=== PATIENT | male | born 1955 | race Caucasian/White ===

== ENCOUNTER 2023-08-05 15:13 | Emergency (ER) | payer MEDICARE, MEDICAID ==
[~2023-08-05] VITALS: Ht 185.4 cm; Wt 89.8 kg
[2023-08-05] MEDS: ipratropium/albuterol 3ml nebule NEB ONE ×2 (17:05→17:54)
[2023-08-05 17:07] VITALS: PULSE 86; RESP 16; O2SAT 95
[2023-08-05 17:17] VITALS: PULSE 84; RESP 18; O2SAT 98
[2023-08-05] MEDS: methylPREDNISolone sod succ 125mg/2ml vial IV ONE (17:19)
[2023-08-05] MEDS: azithromycin/NS 500mg/250ml 250 ML IV ONE (17:19)
[2023-08-05] MEDS: nitroGLYCERIN 0.4mg SUBLingual tab SL STA (17:20)
[2023-08-05 17:54] VITALS: PULSE 93; RESP 18; O2SAT 94
[2023-08-05 18:02] LABS: BASOPHILS # (AUTO) 0.1 X10'3 (0-0.2); BASOPHILS % (AUTO) 1.1 % (0-1); EOSINOPHILS # (AUTO) 0.8 X10'3 (0-0.9); EOSINOPHILS % (AUTO) 10.6 % (0-6); HEMATOCRIT 44.5 % (42.0-52.0); HEMOGLOBIN 14.9 g/dl (14.0-17.9); LYMPHOCYTES # (AUTO) 1.7 X10'3 (1.1-4.8); LYMPHOCYTES % (AUTO) 23.9 % (21-51); MEAN CORPUSCULAR HEMOGLOBIN 31.4 PG (27.0-31.0); MEAN CORPUSCULAR HGB CONC 33.6 g/dL (33.0-36.5); MEAN CORPUSCULAR VOLUME 93.5 FL (78-98); MEAN PLATELET VOLUME 8.7 FL (7.4-10.4); MONOCYTES # (AUTO) 0.7 X10'3 (0-0.9); MONOCYTES % (AUTO) 10.1 % (2-12); NEUTROPHILS # (AUTO) 3.9 X10'3 (1.8-7.7); NEUTROPHILS % (AUTO) 54.3 % (42-75); PLATELET COUNT 205 X10'3 (140-440); RED BLOOD COUNT 4.76 X10'6 (4.70-6.10); RED CELL DISTRIBUTION WIDTH 13.3 % (11.5-14.5); WHITE BLOOD COUNT 7.2 X10'3 (4.5-11.0)
[2023-08-05 18:04] VITALS: PULSE 91; RESP 13; O2SAT 99
[2023-08-05 18:06] LABS: INR 0.9 INR; PROTHROMBIN TIME 10.1 SECONDS (9.0-12.0)
[2023-08-05 18:10] LABS: ALANINE AMINOTRANSFERASE 33 U/L (12-78); ALBUMIN 3.8 G/DL (3.4-5.0); ALKALINE PHOSPHATASE 101 IU/L (46-116); ANION GAP 15 (8-16); ASPARTATE AMINO TRANSFERASE 37 U/L (10-37); BILIRUBIN,TOTAL 0.4 MG/DL (0.1-1.0); BLOOD UREA NITROGEN 24 MG/DL (7-18); BUN/CREATININE RATIO 13.3 (10.0-20.0); CHLORIDE 106 MMOL/L (99-107); GLUCOSE 91 MG/DL (70-104); POTASSIUM 4.1 MMOL/L (3.5-5.1); SODIUM 143 MMOL/L (135-145); TOTAL CARBON DIOXIDE 21.9 MMOL/L (24-32); TOTAL PROTEIN 7.8 G/DL (6.4-8.2); eCRCL 44 ML/MIN; eGFR 38 ML/MIN
[2023-08-05 18:19] LABS: PRO BRAIN NATRIURETIC PEPTIDE 516 PG/ML (0-125)
[2023-08-05] MEDS ORDERED: PRED20TA PO (19:28)
[2023-08-05] MEDS ORDERED: BECL7.3A INH (19:28)
[2023-08-05] MEDS ORDERED: ALBU90AE INH (19:28)
[2023-08-05] MEDS ORDERED: AZIT500T9 PO (19:28)
[2023-08-05 19:45] VITALS: BP 164/104; PULSE 97; RESP 20; TEMP 98.4; O2SAT 90
== END 2023-08-05 19:40 | disposition home or self-care (01) ==
LOC: ER 15:14
DX: J44.1 Chronic obstructive pulmonary disease with (acute) exacerbation (principal); Z79.2 Long term (current) use of antibiotics; Z79.899 Other long term (current) drug therapy
CPT/HCPCS: 36415; 71045; 80053; 83605; 83880; 84484; 85025; 85610; 87040; 93005; 94640; 96365; 96375; 99285; J0456; J2930; 94760

== ENCOUNTER 2023-09-28 16:18 | Emergency (ER) | payer MEDICARE, MEDICAID ==
[~2023-09-28] VITALS: Ht 185.4 cm; Wt 92.2 kg
[~2023-09-28 16:18] MED LIST: ALBU90AE INH; AZIT500T9 PO; BECL7.3A INH
[2023-09-28 17:08] LABS: ALANINE AMINOTRANSFERASE 35 U/L (12-78); ALBUMIN/GLOBULIN RATIO 1.1 (1.1-1.5); ALKALINE PHOSPHATASE 110 IU/L (46-116); ANION GAP 10 (8-16); ASPARTATE AMINO TRANSFERASE 25 U/L (10-37); BILIRUBIN,TOTAL 0.4 MG/DL (0.1-1.0); BLOOD UREA NITROGEN 37 MG/DL (7-18); BUN/CREATININE RATIO 19.6 (10.0-20.0); CALCIUM 9.6 MG/DL (8.5-10.1); CHLORIDE 109 MMOL/L (99-107); CREATININE 1.89 MG/DL (0.60-1.10); GLUCOSE 107 MG/DL (70-104); POTASSIUM 4.5 MMOL/L (3.5-5.1); SODIUM 143 MMOL/L (135-145); TOTAL CARBON DIOXIDE 24.3 MMOL/L (24-32); TOTAL PROTEIN 7.5 G/DL (6.4-8.2); eCRCL 42 ML/MIN; eGFR 36 ML/MIN
[2023-09-28 17:17] LABS: PRO BRAIN NATRIURETIC PEPTIDE 153 PG/ML (0-125)
[2023-09-28] MEDS ORDERED: PRED20TA PO (17:31)
[2023-09-28] MEDS ORDERED: CEFU500T66 PO (17:31)
[2023-09-28 17:50] VITALS: PULSE 85; PULSE 89; RESP 14; RESP 16; O2SAT 100
[2023-09-28] MEDS: albuterol 2.5 MG/3 ML nebule NEB STA (17:50)
[2023-09-28] MEDS: methylPREDNISolone sod succ 125mg/2ml vial IV ONE (18:06)
[2023-09-28] MEDS: cefuroxime axetil 250mg tablet PO ONE (18:06)
[2023-09-28 18:31] LABS: BASOPHILS # (AUTO) 0.1 X10'3 (0-0.2); BASOPHILS % (AUTO) 1.3 % (0-1); EOSINOPHILS # (AUTO) 0.8 X10'3 (0-0.9); EOSINOPHILS % (AUTO) 10.1 % (0-6); HEMATOCRIT 42.6 % (42.0-52.0); HEMOGLOBIN 14.2 g/dl (14.0-17.9); LYMPHOCYTES # (AUTO) 1.7 X10'3 (1.1-4.8); LYMPHOCYTES % (AUTO) 22.6 % (21-51); MEAN CORPUSCULAR HEMOGLOBIN 31.3 PG (27.0-31.0); MEAN CORPUSCULAR HGB CONC 33.2 g/dL (33.0-36.5); MEAN CORPUSCULAR VOLUME 94.2 FL (78-98); MEAN PLATELET VOLUME 8.9 FL (7.4-10.4); MONOCYTES # (AUTO) 0.7 X10'3 (0-0.9); MONOCYTES % (AUTO) 9.4 % (2-12); NEUTROPHILS # (AUTO) 4.2 X10'3 (1.8-7.7); NEUTROPHILS % (AUTO) 56.6 % (42-75); PLATELET COUNT 213 X10'3 (140-440); RED BLOOD COUNT 4.53 X10'6 (4.70-6.10); RED CELL DISTRIBUTION WIDTH 13.6 % (11.5-14.5); WHITE BLOOD COUNT 7.5 X10'3 (4.5-11.0)
[2023-09-28] MEDS ORDERED: HYDR25TA4 PO (18:48)
[2023-09-28] MEDS: HYDROchlorothiazide 25mg tablet PO STA (18:51)
[2023-09-28 20:07] VITALS: BP 178/114; PULSE 79; RESP 21; TEMP 98.6; O2SAT 96
== END 2023-09-28 20:12 | disposition home or self-care (01) ==
LOC: ER 16:18
DX: J44.1 Chronic obstructive pulmonary disease with (acute) exacerbation (principal); J11.1 Influenza due to unidentified influenza virus with other respiratory manifestations; R62.7 Adult failure to thrive; Z79.2 Long term (current) use of antibiotics; Z79.899 Other long term (current) drug therapy
CPT/HCPCS: 36415; 71045; 80053; 83880; 84484; 85025; 93005; 96374; 99285; A4615; J2919; Z7610; 94760

== ENCOUNTER 2025-02-22 14:18 | Emergency (ER) | payer MEDICARE, MEDICAID ==
[~2025-02-22] VITALS: Ht 185.4 cm; Wt 95.7 kg
[~2025-02-22 14:18] MED LIST changes: +CEFU500T66 PO; +HYDR25TA4 PO
[2025-02-22 14:32] VITALS: BP 197/116; PULSE 104; RESP 18; TEMP 97.5; O2SAT 97
--- NOTE | 2025-02-22 15:36 | RADIOLOGY REPORT ---
DI FOOT,LIMITED (AP/LAT), INDICATION: FB to forefoot TECHNICAL DATA: Frontal, and lateral views were obtained of the right foot. COMPARISON: None FINDINGS: No fracture is identified. Joint spaces are maintained. Alignment is anatomic. The hallux sesamoids appear normal. Soft tissues are within normal limits. IMPRESSION: No radiodense foreign body seen. No acute fracture or dislocation of the right foot.
[2025-02-22] MEDS ORDERED: CEPH-585 PO (15:53)
[2025-02-22] MEDS ORDERED: IBUP-1984 PO (15:53)
--- NOTE | 2025-02-22 15:57 | Physician Documentation ---
History of Present Illness ~ Chief Complaint: Toe pain Stated Complaint: SPLINTER Time Seen by MD: 15:10 Primary Medical Doctor: none HPI 69-year-old male presents to the emergency department with suspected foreign body in the left plantar surface of the forefoot. Reports it in the pCO2 by for a splinter that he had removed in wonders if this residual splinter still there. No discharge, fever or drainage from the site. Tetanus witin 5 years: No Medication Reconciliation Allergies: Coded Allergies: No Known Allergies (Unverified , 02/22/25) Scheduled Azithromycin (Azithromycin), 1 TAB PO DAILY Beclomethasone Dipropionate (Qvar 40 MCG INHALER), 2 PUFFS INH BID Cefuroxime Axetil (Cefuroxime), 1 TAB PO Q12H Hydrochlorothiazide (Hydrochlorothiazide), 1 TAB PO DAILY Scheduled PRN Albuterol Sulfate (Proair Respiclick), 2 PUFFS INH Q4HPRN PRN for shortness of breath Review of Systems All Other Systems at this time: Reviewed and Negative Musculoskeletal Left forefoot puncture wound over the plantar surface of the 5th MCP Physical Exam Vital Signs: RN Vital Signs have been reviewed: Yes, Temperature: 97.5, Source: Temporal, Heart Rate: 104, Respiratory Rate: 18, BP: 197/116, Pulse Oximetry: 97, Weight: 95.700 Oxygen Flow Rate: 0 General Appearance: alert, WD/WN, mild distress Head: normal inspection EENT: PERRL/EOMI Respiratory: lungs clear Cardiovascular: normal peripheral pulses Back: normal inspection Pelvis: normal Hips: normal inspection Legs: no evidence of injury Knees: no evidence of injury Distal Function: no motor deficit Skin Puncture wound left plantar forefoot without erythema or palpable FB Lymphatic: normal inspection Neurologic: oriented x4 Psychiatric: normal mood/affect Progress Results/Orders Results/Orders Orders - BEN JONES PAC Foot,Limited (Ap/Lat) (02/22/25 ) Completed Orders - BEN JONES PAC Foot,Limited (Ap/Lat) (02/22/25 ) Vital Signs 02/22/25 14:32 Temp 97.5 Pulse 104 Resp 18 B/P (MAP) 197/116 Pulse Ox 97 O2 Flow Rate 0 Medical Decision Making Additional information obtaine: N/A Findings Examination history warrants imaging to evaluate for foreign body, gas and/or bony involvement. X-ray imaging reassuring. No palpable foreign body at the puncture wound site. No erythema or suspected abscess. We will begin empiric antibiotic coverage along with NSAID. Patient to continue his Epsom salt soaks. The wound to continue to heal by secondary intention. General Diff Dx:Considerations: Include: Contusion, Fracture, Hematoma Knee Diff Dx:Considerations: Include: Other Ankle Diff Dx:Considerations: Include: Other (Contributory noncontributory) Foot Diff Dx:Considerations: Include: Gout, Laceration, Neurovascular injury, Open fracture, Puncture, Septic, Other (Foreign body) Toe Diff Dx:Considerations: Include: Neurovascular injury, Other Departure Disposition: HOME / SELF CARE / HOMELESS Impression: Primary Impression: Puncture wound left forefoot Condition: Improved Discharge Instructions: Puncture Wound, [id number] Additional Instructions: Your x-ray obtained in the emergency department today is reassuring for no obvious foreign body, bony involvement or gas on x-ray. I have provided you with outpatient antibiotic and pain management. Continue with your Epsom salt soaks for your wound is healing well. Thank you for visiting emergency department [facility]. Referrals: NO PRIMARY CARE PROVIDER (PCP) Prescriptions Ibuprofen* (Motrin*) 400 Mg Tablet 400 MG PO Q8H, #20 TAB Prov: BEN JONES 02/22/25 Cephalexin*Monohydrate* (Keflex*) 500 Mg Capsule 1 CAP PO TID, #21 CAP Prov: BEN JONES 02/22/25 Education Educated: Patient Educated regarding: diagnosis, treatment, prognosis, need for follow up Signature Scribe Signature: . Attestation: . BEN JONES Feb 22, 2025 15:57
== END 2025-02-22 16:16 | disposition home or self-care (01) ==
LOC: ER 14:18
DX: S91.132A Puncture wound without foreign body of left great toe without damage to nail, initial encounter (principal); Z79.899 Other long term (current) drug therapy; X58.XXXA Exposure to other specified factors, initial encounter; Y93.89 Activity, other specified; Y92.89 Other specified places as the place of occurrence of the external cause; Y99.8 Other external cause status
CPT/HCPCS: 73620; 99283